=== PATIENT | male | born 1975 | race African-American/Black ===

== ENCOUNTER 2016-05-19 13:21 | Observation (INO) | payer MEDICAID ==
[~2016-05-19] VITALS: Ht 180.3 cm; Wt 62.0 kg
--- NOTE | ~2016-05-19 | HEMODYNAMI ---
PATIENT:MARY GRAY MEDICAL RECORD: [id number] : 77 [facility] [id number] ADMISSION DATE: 05/19/16 Generatedon:05/20/201613:24 Patient name: MARY GRAY Patient #: [id number] SSN: [id number] : 1975 Date of study: 05/20/2016 Page: Of Hemodynamic Procedure Report Patient Data Patient Demographics Procedure consent was obtained First Name: MARY Gender: Male Last Name: MARINA : 1975 Middle Initial: D Age: 40 year(s) Patient #: [id number] Race: Black Ethnicity: or SSN: [id number] Additional ID: [id number] Contact details [address]: [address] [place] [address] State: [place] City: [place] Zip code: [address] Past Medical History Allergies Allergen Reaction Date Comments Reported Other allergy 05/20/2016 Penicillin Admission Admission Data Admission Date: 05/19/2016 Admission Time: 17:11 Arrival Date: 05/19/2016 Arrival Time: 17:11 Admit Source: Other Insurance Payor: Private Room #: [id number] health insurance Height (in.): 71 BSA: 1.79 (m2) Height (cm.): 180.34 BMI: 19.05 (kg/m2) Weight (lbs.): 136.6 Weight (kg.): 61.96 Lab Results Lab Result Date: 05/20/2016 Lab Result Time: 0:00 Biochemistry Name Units Result Min Max BUN mg/dl 8 --(*---)-- 7 18 Creatinine mg/dl 1.1 --(--*-)-- 0.6 1.3 CBC Name Units Result Min Max Hemoglobin g/dl 14.8 --(-*--)-- 13.5 17.5 Procedure Procedure Types Cath Procedure Diagnostic Procedure LHC LHC w/Coronaries Procedure Description Procedure Date Procedure Date: 05/20/2016 Procedure Start Time: 13:10 Procedure End Time: 13:22 Procedure Staff Name Function Carlos Sorto MD Performing Physician Arun Roach RT Scrub Rosalie Ferrera RN Nurse Milla Donato RT Monitor Indication Angina Procedure Data Cath Procedure Fluoroscopy Diagnostic fluoroscopy Total fluoroscopy Time: 0.7 time: 0.7 min min Diagnostic fluoroscopy Total fluoroscopy dose: 167 dose: 167 mGy mGy Contrast Material Contrast Material Type Amount (ml) Isovue 370 44 Entry Location Entry Primary Successful Side Size Upsize Upsize Entry Closure Succes sful Closure Location (Fr) 1 (Fr) 2 (Fr) Remarks Device Remarks Femoral Right 5 Fr Vascade artery Closure System Estimated blood loss: 5 ml Diagnostic catheters Device Type Used For End Catheter Placement Cordis 5Fr Pigtail LV Angiography Catheter (MP) Cordis 5Fr JL 4.0 Left Coronary Catheter (MP) Angiography Cordis 5Fr 3DRC Catheter Right Coronary (MP) Angiography Procedure Complications No complications Procedure Medications Medication Administration Route Dosage Oxygen NC 2 l/min Heparin Flush Bag added to field 2 bags (1000units/500ml NS) Lidocaine 2% added to field 20 Versed I.V. 1 mg Fentanyl I.V. 50 mcg Versed I.V. 1 mg Fentanyl I.V. 50 mcg Versed I.V. 1 mg Fentanyl I.V. 50 mcg Versed I.V. 1 mg Fentanyl I.V. 50 mcg Hemodynamics Rest BSA: 1.79 (m2) HGB: 14.8 (g/dl) O2 Consumption: Estimated: 212.81 (ml/min) O2 Co nsumption indexed: Estimated:118.89 (ml/min/m) Heart Rate: 61 (bpm) Pressure Samples Time Site Value (mmHg) Purpose Heart Use Rate(bpm) 13:16 LV 45/-18,-13 Snapshot 68 Snapshots Pre Cath Intra NCS Post Cath Vital Signs Time Heart Resp SPO2 NIBP Rhythm Pain Sedation Rate (ipm) (%) (mmHg) Status Level (bpm) 12:31:00 59 17 100 103/61(93) NSR 0 (11) 10(A) , No pain 12:35:03 59 16 100 107/60(85) NSR 0 (11) 10(A) , No pain 12:39:09 59 16 99 102/55(80) NSR 0 (11) 10(A) , No pain 12:43:13 60 17 99 98/54(75) NSR 0 (11) 10(A) , No pain 12:47:14 60 16 96 104/58(84) NSR 0 (11) 10(A) , No pain 12:51:18 61 14 100 118/58(91) NSR 0 (11) 10(A) , No pain 12:55:28 63 16 100 118/57(86) NSR 0 (11) 10(A) , No pain 12:59:38 63 16 100 105/55(90) NSR 0 (11) 10(A) , No pain 13:03:44 66 16 100 108/54(85) NSR 0 (11) 10(A) , No pain 13:07:52 64 16 100 111/52(80) NSR 0 (11) 10(A) , No pain 13:11:57 60 16 100 107/59(85) NSR 0 (11) 10(A) , No pain 13:16:05 67 16 100 112/48(88) NSR 0 (11) 9(A) , No pain 13:20:15 74 16 100 100/53(85) NSR 0 (11) 9(A) , No pain Medications Time Medication Route Dose Verified Delivered Reason Notes Effec tiveness by by 12:31:40 Oxygen NC 2 Carlos Rosalie Per l/min Noreen Ferrera RN physician 12:31:48 Heparin Flush added 2 Carlos Carlos used for Bag to bags Noreen Sorto MD procedure (1000units/500ml field NS) 12:31:55 Lidocaine 2% added 20ml Carlos Nicholsrey used for to vial Noreen Sorto MD procedure field 13:09:14 Versed I.V. 1 mg Carlos Rosalie for Noreen Ferrera RN sedation 13:09:20 Fentanyl I.V. 50 Carlos Rosalie for mcg Noreen Ferrera RN sedation 13:11:25 Versed I.V. 1 mg Carlos Rosalie for Noreen Ferrera RN sedation 13:11:29 Fentanyl I.V. 50 Carlos Rosalie for mcg Noreen Ferrera RN sedation 13:13:31 Versed I.V. 1 mg Carlos Rosalie for Noreen Ferrera RN sedation 13:13:33 Fentanyl I.V. 50 Carlos Rosalie for mcg Noreen Ferrera RN sedation 13:15:39 Versed I.V. 1 mg Carlos Wiggins for Noreen Ferrera RN sedation 13:15:42 Fentanyl I.V. 50 Carlos Wiggins for mcg Noreen Ferrera RN sedation Procedure Log Time Note 12:00:14 Arun Roach RT(R) sent for patient. Start room use. 12:17:33 Informed consent obtained and on chart 12:18:02 Admit Source: Other 12:18:04 Arrival Date: 05/19/2016 5:11:00 PM 12:18:30 Insurance Payor : Private health insurance 12:19:31 Diagnostic Cath Status : Elective 12:20:08 Indication : Angina 12:20:57 Lab Result : Creatinine 1.1 mg/dl 12::57 Lab Result : BUN 8 mg/dl 12:20:57 Lab Result : Hemoglobin 14.8 g/dl 12:21:21 Time tracking: Regular hours 12:21:25 Plan of Care:Hemodynamics will remain stable., Cardiac rhythm will remain stable., Comfort level will be maintained., Respiratory function will remain adequate., Patient/ family verbilizes understanding of procedure., Procedure tolerated without complication., Recovers from procedure without complications.. 12:22:43 Patient received from Med II to CCL 1 Alert and oriented. Tansferred to table in Supine position. 12:22:44 Warm blankets applied, and li hugger turned on for patient comfort. 12:22:44 Correct patient and procedure confirmed by team. 12:22:45 ECG and BP/O2 sat monitors applied to patient. 12:29:43 Vital chart was started 12:29:45 Baseline sample Acquired. 12:30:02 Rhythm: sinus rhythm , paced 12:30:04 Full Disclosure recording started 12:31:40 Oxygen 2 l/min NC was given by Rosalie Ferrera RN; Per physician; 12:31:48 Heparin Flush Bag (1000units/500ml NS) 2 bags added to field was given by Carlos Sorto MD; used for procedure; 12:31:55 Lidocaine 2% 20ml vial added to field was given by Carlos Sorto MD; used for procedure; 12:32:15 H&P Date Dictated: 05/20/2016 New H&P dictated by physician.. 12:32:18 Pre-procedure instructions explained to patient. 12:32:18 Pre-op teaching completed and patient verbalized understanding. 12:32:19 Family in waiting room. 12:32:21 Patient NPO since Midnight. 12:32:36 Patient allergic to Other allergyPenicillin 12:32:38 Is the patient allergic to Iodine/contrast media? No. 12:32:39 Was the patient premedicated? No 12:32:43 Is patient on blood thinner?No 12:32:44 Patient diabetic? No. 12:32:47 Previous problem with sedation/anesthesia? No ? 12:32:49 Snore? Yes 12:32:53 Sleep apnea? No 12:32:54 Deviated septum? No 12:32:54 Opens mouth fully? Yes 12:32:56 Sticks out tongue? Yes 12:32:57 Airway obstruction? No ? 12:33:00 Dentures? No ? 12:33:03 Pre procedure: right dorsailis pedis pulse 1+ Palpable, but thready & weak; easily obliterated 12:33:27 Patient pain scale 0/10 ?. 12:33:36 IV patent on arrival in left forearm with 0.9% NaCl at [facility]. 12:33:44 Lab results completed and on chart. 12:33:48 Right groin area was prepped with chlora-prep and draped in sterile fashion 12:33:49 Alarms reviewed by R. N. 12:33:49 Sharps counted by scrub and verified by R.N. 12:34:47 Patient Height : 180.34 inches 12:34:52 Patient Weight : 61.96 lbs 12:35:13 Physician paged 12:38:36 Zero performed for pressure channel P1 12:39:26 Use device set Femoral Dx 12:39:27 Acist Syringe opened to sterile field. 12:39:28 Bag Decanter opened to sterile field. 12:39:28 Cardinal Cath Pack opened to sterile field. 12:39:29 Terumo 5Fr Tolstoy Sheath opened to sterile field. 12:39:29 St Edilberto 260cm J .035 wire opened to sterile field. 12:39:30 Acist Hand Control opened to sterile field. 12:39:30 Acist Manifold opened to sterile field. 12:39:31 Cordis Infinity 5Fr Multipack catheter opened to sterile field. 12:39:31 Tegaderm 4 x 4 opened to sterile field. 13:09: Physician arrived 13:: --------ALL STOP TIME OUT------ 13:09:02 Final Timeout: patient, procedure, and site verified with staff and physician. All members of the team are in agreement. 13::04 Right groin site verified by team. 13:: Physical assessment completed. ASA score P 2 - A patient with mild systemic disease as per Carlos Sorto MD. 13:: Sedation plan: IV Moderate Sedation Versed, Fentanyl 13:09:14 Versed 1 mg I.V. was given by Rosalie Ferrera RN; for sedation; 13:09:20 Fentanyl 50 mcg I.V. was given by Rosalie Ferrera RN; for sedation; 13:10:26 Procedure started. 13:10:29 Local anesthetic to right femoral artery with Lidocaine 2% by Carlos Sorto MD.INITIAL ACCESS ONLY 13:10:37 A 5 Fr sheath was inserted into the Right Femoral artery 13:10:55 A Cordis 5Fr Pigtail Catheter (MP) was advanced over the wire and used for LV Angiography. 13:11:25 Versed 1 mg I.V. was given by Rosalie Ferrera RN; for sedation; 13:11:29 Fentanyl 50 mcg I.V. was given by Rosalie Ferrera RN; for sedation; 13:13:31 Versed 1 mg I.V. was given by Rosalie Ferrera RN; for sedation; 13:13:33 Fentanyl 50 mcg I.V. was given by Rosalie Ferrera RN; for sedation; 13:15:39 Versed 1 mg I.V. was given by Rosalie Ferrera RN; for sedation; 13:15:42 Fentanyl 50 mcg I.V. was given by Rosalie Ferrera RN; for sedation; 13:16:17 LV hemodynamics recorded. 13:16:18 LV gram done using YANG 13:16:37 EF : 30 % 13:16:42 Catheter removed. 13:16:47 A Cordis 5Fr JL 4.0 Catheter (MP) was advanced over the wire and used for Left Coronary Angiography. 13:17:04 LCA angiography performed. 13:17:40 Injector settings: Ml/sec: 3, Volume: 6, 13:18:17 Catheter removed. 13:18:22 A Cordis 5Fr 3DRC Catheter (MP) was advanced over the wire and used for Right Coronary Angiography. 13:18:40 RCA angiography performed. 13:18:43 Injector settings: Ml/sec: 3, Volume: 6, 13:18:51 Vascade 5Fr Closure Device opened to sterile field. 13:19:23 Catheter removed. 13:19:32 Sheath removed intact; hemostasis achieved with Vascade Closure System to the Right Femoral artery. 13:19:34 Procedure ended.(Physican Out) 13:21:13 Fluoroscopy time 00.70 minutes. 13:21:17 Fluoroscopy dose: 167 mGy 13:21:17 Flurop Dose total: 167 13:21:30 Contrast amount:Isovue 370 44ml. 13:21:31 Sharps counted by scrub and verified by R.N. 13:21:32 Insertion/operative site no bleeding no hematoma. 13:21:35 Post-op/insertion site Right Femoral artery dressed using a 4 x 4 and Tegaderm. 13:21:38 Post right femoral artery:stable 13:21:39 Post Procedure Pulses reassessed and unchanged 13:21:42 Post procedure rhythm: unchanged. 13:21:44 Estimated blood loss: 5 ml 13:21:45 Post procedure instruction explained to patient.Patient verbalizes understanding. 13:21:46 Patient needs reinforcement of post procedure teaching. 13:21:51 Procedure and supply charges have been captured, reviewed, submitted and are correct. 13:21:54 Procedure Complication : No complications 13:21:56 Vital chart was stopped 13:21:57 See physician's report for complete and final results. 13:22:01 Report given to [facility] II. 13:22:03 Patient transfered to Med II with Stretcher. 13:22:05 Procedure ended. 13:22:05 Full Disclosure recording stopped 13:22:14 End room use (Document Last) Device Usage Item Name Manufacture Quantity Catalog Number Hospital Part Current Minimal Lot# / Charge Number Stock Stock Serial# Code Acist [facility] 1 71726 [id number] 477065 [id number] 20 Syringe Medical Systems Inc Bag Microtek 1 2001S 639979 87711 784911 5 Decanter Medical Inc. Cardinal Cardinal 1 [id number] 175222 36128 203903 5 Cath Pack Health Terumo Terumo 1 [id number] 917616 344418 364962 [address] Ed[address]to St Edilberto 1 317936 191430 461024 870451 30 260cm J .035 wire Acist Acist 1 23068 829246 126310 828654 5 Hand Medical Control Systems Inc Acist Acist 1 60546 625007 470107 658440 5 Manifold Medical Systems Inc Cordis Cardinal 1 [id number] 358004 89501 435810 30 Rocketship Education 5Fr Multipack catheter Tegaderm 3M 1 1626W 286618 089177 724840 5 4 x 4 Cordis Cardinal 1 017368 5 5Fr Health Pigtail Catheter (MP) Cordis Cardinal 1 156849 5 5Fr JL Health 4.0 Catheter (MP) Cordis Cardinal 1 691752 5 5Fr [facility] Health Catheter (MP) Vascade Cardiva 1 [id number] 234912 85671 660966 10 5Fr Medical, Closure Inc. Device Signature Audit [place] Stage Time Signature Unsigned Intra-Procedure 05/20/2016 Milla Donato 1:24:24 PM RT(R) Signatures Monitor : Milla Donato RT Signature : Date : Time : [id number] [place] [address]
[~2016-05-19 13:21] MED LIST: APAP325 MG PO; BENZTROPINE MESY1 MG PO; CELEXA20 MG PO; ISOSORBIDE MONO10 MG PO; LISINOPRIL2.5 MG PO; NAPROXEN375 M1 PO; NEURONTIN600 MG PO; RISPERDAL3 MG PO
[2016-05-19 14:09] LABS: HEMATOCRIT 45.4 % (42.0-54.0); HEMOGLOBIN 14.8 g/dL (13.5-17.5); MCH 27.6 pg (26.0-34.0); MCHC 32.6 g/dL (31.0-37.0); MCV 84.5 fL (80.0-100.0); PLATELET COUNT 207 10x3/uL (130-400); RBC 5.37 10x6/uL (4.20-6.10); RDW 15.8 % (11.5-14.5); WBC 3.7 10x3/uL (4.8-10.8)
[2016-05-19 14:22] LABS: ALBUMIN 3.5 g/dL (3.4-5.0); ALKALINE PHOSPHATASE 69 U/L (46-116); ALT (SGPT) 22 U/L (10-68); BILIRUBIN - TOTAL 0.48 mg/dL (0.2-1.3); CALC OSMOLALITY 275 mosm/kg (275-300); CALCIUM 8.9 mg/dL (8.5-10.1); CARBON DIOXIDE 29.5 mmol/L (21.0-32.0); CHLORIDE - SERUM 104 mmol/L (98-107); CREATININE - SERUM 1.1 mg/dL (0.6-1.3); GLUCOSE 96 mg/dL (74-106); POTASSIUM - SERUM 4.8 mmol/L (3.5-5.1); PROTEIN - SERUM 7.1 g/dL (6.4-8.2); SODIUM 139 mmol/L (136-145); UREA NITROGEN 8 mg/dL (7-18); eGFR NON AFRICAN AMERICAN 79 mL/min (90-120)
[2016-05-19 14:34] LABS: CHOL - HDL RATIO 3.7 ratio (2.3-4.9); CHOLESTEROL, TOTAL 203 mg/dL (0-200); CKMB 0.3 U/L (0.0-3.6); CREATINE KINASE 63 UL (21-232); HDL CHOLESTEROL 55 mg/dL (32-96); LDL CHOLESTEROL 141 mg/dL (0-100); LDL-HDL RATIO 2.6 ratio (1.5-3.5); LYMPHOCYTES 59 % (15-50); MONOCYTES 4 % (2-11); NEUTROPHILS 34 % (40-80); PLATELET ESTIMATE NORMAL; TRIGLYCERIDE 39 mg/dL (30-200)
[2016-05-19 14:35] LABS: TROPONIN-I < 0.017 ng/mL (0.000-0.060)
--- NOTE | 2016-05-19 18:53 | NUR ---
RECEIVED PT TO ROOM 2120 IN STABLE CONDITION VIA W/C CHEST PAIN 05/06 PT DENIES ANY NEEDS AT THIS TIME
[2016-05-19 19:00] VITALS: BP 136/83
--- NOTE | 2016-05-19 19:03 | NUR ---
SITTING UP IN BED, AAOX3, SKIN WARM AND DRY, RESP UNLABORED, IV PATENT TO LEFT FOREARM, GUARD AT BEDSIDE, NO DISTRESS NOTED
[2016-05-20] VITALS: BP 134/71
--- NOTE | 2016-05-20 00:54 | NUR ---
PT RESTING IN BED, BED LOW AND LOCKED, CALL LIGHT IN REACH. RESPIRATIONS UNLABORED. TELELMETRY SHOWING 60 BPM WITH NSR. ON ROOM AIR AND GUARD AT BEDSIDE. NO SIGNS OF ACUTE DISTRESS NOTED. WILL CONTINUE TO MONITOR.
[2016-05-20 02:52] VITALS: BP 136/83; Ht 180.3 cm; Wt 62.0 kg
[2016-05-20 04:00] VITALS: BP 125/78
--- NOTE | 2016-05-20 06:42 | NUR ---
RESTING QUIETLY IN BED, NO DISTRESS NOTED
--- NOTE | 2016-05-20 08:10 | NUR ---
PATIENT GIVEN ORAL MEDICATION. HE C/O CP THAT HE RATES A 6 ON THE PAIN SCALE. TELEMETRY SHOWS THAT HE PACING. HE DOESNT SOUND REGULAR. LUNGS ARE CLEAR THROUGHOUT.
[2016-05-20 08:31] VITALS: BP 139/83
--- NOTE | 2016-05-20 08:38 | NUR ---
TELEMETRY LEADS REPLACED. HE CONTINUES TO PACE. BBB NOTED.
[2016-05-20 11:42] VITALS: BP 95/50
--- NOTE | 2016-05-20 12:29 | NUR ---
RECEIVED CALL FROM [facility] REQUESTING A URINE SAMPLE BE OBTAINED. DID SO WHEN HE SIGNED THE CONSENTS. GUARD IN THE ROOM WITH US. PLACED THE SAMPLE IN A BIOHAZARD BAG. 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 NURSE RETURNED TO RETRIEVE IT STATING THAT HE IS SUPPOSED TO HAVE IT IN HIS POSESSION AT ALL TIMES.
--- NOTE | 2016-05-20 14:29 | NUR ---
PATIENT'S RIGHT GROIN IS SOFT AND WITHOUT EVIDNCE OF BLEEDING. HE WAS SLEEPING QUIELTY WHEN I ENTERED. AWOKE EASILY. REQUESTED FOOD AND STATED THAT HE FELT THAT HE NEEDS TO URINATE. URINAL AND INSTRUCTIONS TO REMAIN SUPINE GIVEN.
[2016-05-20 15:51] VITALS: BP 97/53
--- NOTE | 2016-05-20 17:00 | NUR ---
REPORT CALLED TO [facility]. SPOKE WITH NURSE GALLOWAY IN THE CLINIC. SHE STATES THAT THE PATIENT IS RELEASED TO RETURN TO THE FACILITY AND TO THE [facility]. THIS DONE AFTER TALKING WITH DR. LICEA AND GIVING A VERBAL REPORT. HE STATES THAT THE PATIENT IS OK TO RETURN TO THE [facility]. THIS DONE WITHOUT DOC TO DOC SINCE THE PATIENT WOULD ACTUALLY BY GOING HOME IF A FREE MAN.
--- NOTE | 2016-05-20 17:04 | NUR ---
DISCUSSED DISCHARGE INSTRUCTIONS. ALLOWED HIM TO READ HIS DISCHARGE PAPERWORK. IV REMOVED FROM THE LEFT FOREARM. 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 GUARD IS AT THE BEDSIDE AND PREPARED TO TRANSPORT HIM VIA VAN.
--- NOTE | 2016-05-26 14:16 | DS ---
PATIENT:MARY ABREU :77 MEDICAL RECORD: [id number] DISCHARGE SUMMARY ADMISSION DATE: 05/19/16 DISCHARGE DATE: 05/20/16 DISCHARGE DIAGNOSES: 1. Chest pain of unknown etiology. 2. Sick sinus syndrome. 3. Status post pacemaker. HOSPITAL COURSE: Mr. Abreu presents with chest pain. He underwent cardiac catheterization revealing no significant coronary artery disease. No significant dysrhythmias were noted. His chest pain is noncardiac in etiology. No further cardiac workup needs to be ascertained. TRANSINT:[id number] Voice Confirmation ID: [id number] DOCUMENT ID: [id number] PRIMITIVO LOJA MD at 1416 CC: [id number] DICTATION DATE: 05/20/16 1321 [employer] TECHNICAL MANAGER: 05/20/16 1337 DIS IN 05/20/16 [facility] [address] [place] [address]
--- NOTE | 2016-05-26 14:16 | HP ---
PATIENT: MARY GRAY MEDICAL RECORD: [id number] ACCOUNT: [id number] LOCATION:[address] : [birth year] ADMISSION DATE: 05/19/16 HISTORY AND PHYSICAL EXAMINATION ADMITTING DIAGNOSES: 1. Abnormal ECG. 2. Chest pain compatible with angina. 3. Family history of premature coronary artery disease. HISTORY OF PRESENT ILLNESS: This is a gentleman who is followed by Dr. Alonzo. He has had recurrent chest pain. He as a strong family history of coronary artery disease. Cardiac catheterization was planned by Dr. Alonzo in the future. However, he presents to the Emergency Room with increasing chest pain. He is incarcerated. His EKG has significant ST-T abnormalities throughout. PHYSICAL EXAMINATION: GENERAL APPEARANCE: Well-nourished, well-developed, appears stated age. Level of distress, comfortable. PSYCHIATRIC: Mental status, alert, normal affect. Orientation, oriented to time, place and person. EYES: Lids and conjunctiva, noninjected. No discharge, no pallor. ENT: Lips, teeth, gums, normal dentition. Oropharynx, no cyanosis, no pallor. NECK: Carotid arteries, bilateral normal upstroke, no bruits, no thrills. JUGULAR VEINS: No jugular venous pressure or distention. CERVICAL LYMPH NODES: Nontender, nonenlarged. THYROID: Not enlarged. Nontender. No nodules. LUNGS: Respiratory effort, unlabored. CHEST: Normal curvature. No thoracic deformity. No chest wall tenderness. Percussion, resonant. Auscultation, clear. No wheezes, no rales, no rhonchi. CARDIOVASCULAR: Precordial exam, nondisplaced. No heaves or pericardial thrills. Rate and rhythm, regular. Heart sounds, normal S1, normal S2. No S3, no gallop, no rub. Systolic murmur, not heard. Diastolic murmur, not heard. EXTREMITIES: No cyanosis, no edema. Peripheral pulses, full and equal in all extremities, except as noted. No bruits appreciated. ABDOMEN: Soft, nondistended. Normal aorta. No bruit. Nontender. No masses. Liver, nontender, no hepatomegaly. Spleen, nontender, no splenomegaly. MUSCULOSKELETAL: No joint tenderness. No joint swelling. No erythema. NEUROLOGICAL: Normal gait, normal strength, normal tone. SKIN: Warm and dry. REVIEW OF SYSTEMS: The patient reports easy bruising but reports no swollen glands. The patient reports no fever, no night sweats, no significant weight gain, no significant weight loss. No significant exercise tolerance. The patient reports no dry eyes, no irritation, no vision change. Patient reports no difficulty hearing and no ear pain. Patient reports no frequent nose bleeds or nose and sinus problems. Patient reports on arm pain on exertion. No shortness of breath while lying down. No history of heart murmur. Patient reports no cough, no wheezing or coughing up blood. Patient reports no abdominal pain, no vomiting. Normal appetite. No diarrhea and not vomiting blood. No nausea and no constipation. Patient reports no incontinence. No difficulty urinating. No hematuria. No increased frequency. Patient reports no muscle aches. No weakness, no arthralgias, no back pain. No swelling of the extremities. Patient reports no abnormal mole, no jaundice, no rashes. Reports HISTORY AND PHYSICAL [id number] MARY GRAY no loss of consciousness. No weakness and no numbness. No seizures, dizziness, or headaches. The patient reports no depression, no sleep disturbance, feeling safe in a relationship and no alcohol abuse. Patient reports on fatigue. Reports no runny nose or sinus pressure. No itching, no hives, and no frequent sneezing. OVERALL IMPRESSION: Chest pain compatible with angina and markedly abnormal ECG and with continued chest pain in an escalating fashion, we will proceed with coronary angiography in the a.m. Further care depends upon findings of the angiography. TRANSINT:[id number] Voice Confirmation ID: [id number] DOCUMENT ID: [id number] PRIMITIVO LOJA MD at 1416 CC: [id number] DICTATION DATE: 05/19/16 1736 MEDICAL RECORDS DIRECTOR: 05/19/161920 DIS IN 05/20/16 [address] [place] [address]
--- NOTE | 2016-05-26 14:16 | OP ---
PATIENT NAME: MARY GRAY MEDICAL RECORD: [id number] :77 LOCATION:D.M2 D.2121 ADMISSION DATE:05/19/16 SURGEON: PRIMITIVO LOJA MD DATE OF OPERATION: 05/20/2016 PROCEDURES: 1. Left heart catheterization. 2. Selective coronary angiography. 3. Left ventriculogram. 4. Pacemaker interrogation. INDICATION: Chest pain compatible with angina, sick sinus syndrome, status post dysrhythmia. PROCEDURE IN DETAIL: After informed consent was obtained and after detailed explanation of risks, benefits, as well as alternative therapies, the patient elected to proceed with angiogram and heart catheterization. The right femoral area was prepped and draped in normal sterile fashion. Right femoral artery was cannulated via modified Seldinger technique with placement of 5-Pashto sheath. All catheters exchanged through this sheath. FINDINGS: Left ventriculogram was performed in the standard 30-degree YANG view reveals good cardiac wall motion throughout all segments. Overall ejection fraction estimated at 60%. SELECTIVE CORONARY ANGIOGRAPHY: 1. Left main, left anterior descending, left circumflex, right coronary are smooth-walled vessels with no angiographic evidence of coronary artery disease. 2. Pacemaker interrogation reveals no significant dysrhythmia. OVERALL IMPRESSION: Chest pain is noncardiac in etiology. No further cardiac workup that needs to be ascertained. TRANSINT:[id number] Voice Confirmation ID: [id number] DOCUMENT ID: [id number] PRIMITIVO LOJA MD at 1416 CC: [id number] DICTATION DATE: 05/20/16 1321 ART HANDLER: 05/20/16 1346 DIS IN 05/20/16 [id number] [place] [address]
== END 2016-05-20 17:00 ==
LOC: D.ER 13:21 → D.M2 17:11 → D.SDCHOLD 17:11 → OBSVTIME 17:12 → D.M2 18:42
PROVIDERS: Emergency Medicine; ADMIT Internal Medicine Interventional Cardiology
DX: R07.89 Other chest pain (principal); R94.31 Abnormal electrocardiogram [ECG] [EKG]; Z95.0 Presence of cardiac pacemaker